=== PATIENT | female | born 1960 | race Caucasian/White ===

== ENCOUNTER 2016-06-24 12:56 | Inpatient (IN) | payer OTHER ==
[~2016-06-24] VITALS: Ht 170.1 cm; Wt 110.2 kg
--- NOTE | ~2016-06-24 | PR ---
[place], [place] PROGRESS NOTE NAME: ANUPAMA SEGURA [facility] #: [id number] UNIT #: [id number] ROOM: 404 DOCTOR: ISABELLE NOONAN MD BIRTHDATE: [birth year] DOS: SUBJECTIVE: The patient is ambulating this morning without any shortness of breath. Her cough is subsided. Her rash has resolved. OBJECTIVE: VITAL SIGNS: Graphic trend shows a pressure of 130/72, pulse of 92, respirations 15, temperature 97.2. LUNGS: Clear this morning. HEART: Regular. ABDOMEN: Obese, soft. EXTREMITIES: Without any edema. ASSESSMENT AND PLAN: 1. Lingular and left lower lobe pneumonia, possible gram negative. Unfortunately, sputum cultures have been ordered, but has not been sent. The patient is stable and improved both clinically as well as radiologically. 2. Acute exacerbation of asthma, which has also improved. 3. Fatty infiltration of liver, advised weight loss. 4. Type 2 diabetes mellitus, non-insulin dependent, controlled. 5. Drug rash, unsure whether it is the doxycycline or the cephalosporins, which caused it, anyway, both the medications have been discontinued and placed on Levaquin and the patient is not having any further rash. The plan is to discharge her to home today on steroids and antibiotics. ISABELLE NOONAN MD CM:PNTRANS [phone] ISABELLE NOONAN MD 06/29/162103 interface
--- NOTE | ~2016-06-24 | PR ---
[place], [place] PROGRESS NOTE NAME: ANUPAMA SEGURA [facility] #: [id number] UNIT #: [id number] ROOM: 404 DOCTOR: NAZANIN MEDELLIN MD BIRTHDATE: [birth year] DOS: 06/27/2016 SUBJECTIVE: The patient says she still has cough and shortness of breath. PHYSICAL EXAMINATION: GENERAL: Morbid obesity. The patient is alert and oriented x 3, in no visible distress. VITAL SIGNS: Blood pressure 124/75, heart rate 85 beats minute, breathing 18 times per minute, temperature 98 degrees Fahrenheit. HEENT AND NECK: Exam within normal limits. CARDIOVASCULAR SYSTEM: Heart rate is regular in rate and rhythm. S1 and S2 normally audible. LUNGS: Somewhat decreased breath sounds especially at the bases. ABDOMEN: Soft, nontender. No obvious organomegaly. Bowel sounds are present. EXTREMITIES: Without significant cyanosis or edema. IMPRESSION: 1. The patient with lingular and left lower lobe pneumonia, likely Gram-negative organisms being treated with ceftriaxone and doxycycline, which had to be discontinued because the patient developed a skin rash and now she is taking IV Levaquin. 2. Drug rash, possibly from ceftriaxone that is a cephalosporins or even doxycycline, which have been stopped, and the patient is on Solu-Medrol and Atarax and has good symptom relief. 3. Benign essential hypertension. The patient is on lisinopril and blood pressures are reasonably controlled. 4. Type 2 diabetes mellitus. The patient's blood sugars are being monitored and are ranging between 148-376, being covered with insulin. Corticosteroid-induced hyperglycemia being covered with regular insulin sliding scale. 5. Exacerbation of bronchial asthma with wheezing and asthmatoid wheezing, being treated with corticosteroids. I will continue present treatment. NAZANIN MEDELLIN MD CM:PNTRANS [id number] NAZANIN MEDELLIN MD 06/28/16911 interface
--- NOTE | ~2016-06-24 | PR ---
[place], [place] PROGRESS NOTE NAME: ANUPAMA SEGURA [facility] #: [id number] UNIT #: [id number] ROOM: 404 DOCTOR: NAZANIN MEDELLIN MD BIRTHDATE: [birth year] DOS: 06/28/2016 SUBJECTIVE: The patient is still coughing significantly, although her breathing has improved. OBJECTIVE: VITAL SIGNS: Blood pressure 124/72, heart rate of 93 beats per minute, breathing 20 times per minute, afebrile. GENERAL APPEARANCE: The patient is alert and oriented x 3, in no visible distress. Obesity. HEENT AND NECK: Exam within normal limits. CARDIOVASCULAR SYSTEM: Heart rate is regular in rate and rhythm. S1 and S2 normally audible. LUNGS: Clear to auscultation. ABDOMEN: Soft, nontender. No obvious organomegaly. Bowel sounds are present. EXTREMITIES: Without significant cyanosis or edema. IMPRESSION: 1. The patient with lingular pneumonia and left lower lobe pneumonia, being treated with Levaquin now. She is clinically improving. The wheezing has resolved. 2. Drug rash improved after the patient stopped taking ceftriaxone and doxycycline. The patient treated with Solu-Medrol and Atarax. 3. Benign essential hypertension with normal blood pressures with treatment. 4. Type 2 diabetes mellitus with better controlled blood sugars now, ranging between 140-150, improved today. 5. Corticosteroid-induced hyperglycemia being treated with regular insulin sliding scale. 6. Exacerbation of bronchial asthma with wheezing and asthmatoid wheezing, being treated with corticosteroids, antibiotics, oxygen, and is improving. NAZANIN MEDELLIN MD CM:PNTRANS [id number] NAZANIN MEDELLIN MD 06/29/16 1107 interface
--- NOTE | ~2016-06-24 | PR ---
[place], [place] PROGRESS NOTE NAME: ANUPAMA SEGURA [facility] #: [id number] UNIT #: [id number] ROOM: 404 DOCTOR: ISABELLE NOONAN MD BIRTHDATE: [birth year] DOS: 06/26/2016 SUBJECTIVE: The patient is feeling better, but has a cough which is productive of scant amounts of sputum. OBJECTIVE: VITAL SIGNS: Blood pressure 125/72, pulse of 102, respirations 20, temperature 97.6. LUNGS: Diminished breath sounds. HEART: Regular. ABDOMEN: Obese, soft. EXTREMITIES: Without edema. ASSESSMENT AND PLAN: 1. A lingular pneumonia as well as a left lower lobe pneumonia, on intravenous antibiotics. This is most likely Gram-negative. Awaiting sputum cultures. Continue antibiotics right now. 2. Asthma with exacerbation, tachypnea and tachycardia with possible early sepsis. The patient is on breathing treatments and IV steroids and slowly improving. 3. Type 2 diabetes mellitus, insulin-dependent, with steroid-induced hyperglycemia, which should start tapering the steroids tomorrow, should be able to go home with p.o. antibiotics. ISABELLE NOONAN MD CM:PNTRANS [phone] ISABELLE NOONAN MD 08/04/16 1231 interface
--- NOTE | ~2016-06-24 | DS ---
[place], [place] DISCHARGE SUMMARY NAME: ANUPAMA SEGURA [facility] #: [id number] UNIT #: [id number] ROOM: 404 DOCTOR: ISABELLE NOONAN MD BIRTHDATE: [birth year] DOS: 06/29/2016 DIAGNOSES: 1. Pneumonia, lingular and left lower lobe. 2. Asthma intermittent with acute exacerbation. 3. Acute respiratory distress syndrome. 4. Tachycardia, possibly from underlying infection. 5. Type 2 diabetes mellitus, non-insulin dependent. 6. Benign hypertension. 7. Mixed hyperlipidemia. 8. Chronic low back pain with spinal stenosis. MEDICATIONS ON DISCHARGE: Same as home meds, gabapentin 300 b.i.d., glimepiride 4 b.i.d., amitriptyline 25 at bedtime, [place] 10 q.4 hours p.r.n., lisinopril 20 daily, Claritin 10 daily, metformin 1000 b.i.d., Aciphex 20 daily, zolpidem 10 at bedtime. New prescriptions given were Levaquin 750 daily for 10 days and prednisone tapering dose, also DuoNeb q.8 hours. HOSPITAL COURSE: This patient is very well known to us, comes in with complaints of cough. She has had multiple ER and urgent care visits with cough and shortness of breath, has been prescribed antibiotics and steroids and continued to have cough and shortness of breath and so decided to come into the office. She was diagnosed with acute respiratory distress and possible early pneumonia and was admitted. After admission, the patient was placed on IV steroids for acute exacerbation of asthma, IV antibiotics. A CT of the chest was done, which showed lingular and left lower lobe pneumonia. Sputum cultures were ordered. The patient's sputum cultures have not been sent yet. Tachypnea and tachycardia seemed to be resolving with the steroids and antibiotics. Cough is also subsiding. The patient then developed a drug rash from one of the antibiotics that she is on, doxycycline and cephalosporins were discontinued and she has been placed on Levaquin. She has not had any new problems, rash has resolved and the patient will be discharged to home to be followed up as an outpatient. Discharge medications as above. We will repeat a CT of the chest as an outpatient at a later date. [place], [place] DISCHARGE SUMMARY NAME: ANUPAMA SEGURA UNIT #: [id number] ROOM: [facility] DOCTOR: ISABELLE NOONAN MD BIRTHDATE: [birth year] ISABELLE NOONAN MD CM:CARLOS [phone] ISABELLE NOONAN MD 06/29/16 1526 interface
--- NOTE | ~2016-06-24 | WRIGHTHP ---
[place], [place] PATIENT HISTORY AND PHYSICAL EXAM NAME: ANUPAMA SEGURA [facility] #: [id number] UNIT #: [id number] ROOM: 404 DOCTOR: ISABELLE NOONAN MD BIRTHDATE: [birth year] DOS: 06/24/2016 HISTORY OF PRESENT ILLNESS: The patient is very well known to us. She comes in with complaints of shortness of breath and cough. She went to [facility] [place] on 06/01/2016, was found to have pneumonia, was prescribed Levaquin. Without any improvement in symptoms, she went back to the same place on [place]. This time, she was told that she needs to go to the hospital because of lack of improvement. She came to the Emergency Room here, she had a chest x-ray, which did not show any pneumonia. She was diagnosed with bronchitis, sent home on cough medications and prednisone. She continues to cough and finally comes to the office on 06/24/2016 with complaints of difficulty breathing and cough which has not resolved for about 3 weeks. She denies having any chest pains, but has palpitations and she has hard time walking because of increasing shortness of breath. PAST MEDICAL HISTORY: Significant for, 1. Type 2 diabetes mellitus, noninsulin dependent. 2. Benign hypertension. 3. Mixed hyperlipidemia. 4. History of asthma with hospitalization in 2013 with asthmatic bronchitis. 5. Chronic low back pain with spinal stenosis. MEDICATIONS: She is currently on are gabapentin 300 b.i.d., glimepiride 4 b.i.d., amitriptyline 25 daily at bedtime, [place] 10 q.4 p.r.n., lisinopril 20 daily, Claritin 10 daily, metformin 1000 b.i.d., Aciphex 20 daily, zolpidem 10 at bedtime p.r.n. SOCIAL HISTORY: Nonsmoker, does not use any alcohol. PHYSICAL EXAMINATION: GENERAL: The patient is awake, alert and oriented. Unstoppable cough. VITAL SIGNS: Her heart rate was 130. When she exercised, saturations did not drop, it remained in the low 90s, but the heart rate went up to the 130. The moment she started walking, she became extremely short of breath. Pressure was 118/54, temperature 98.5. LUNGS: Diminished breath sounds, scattered wheezes. HEART: Regular. ABDOMEN: Obese, soft. EXTREMITIES: Without any edema. ASSESSMENT AND PLAN: 1. The patient has history of asthma, who had a recent diagnosis of pneumonia without any improvement, has been admitted for failed outpatient regimen. She has been started on IV antibiotics. CT scan of the chest will be done to see the extent of infection. 2. Acute exacerbation of asthma, which has been intermittent in the past. She is not on any inhalers right now. IV steroids will be added. Breathing treatments and Pulmicort is also started. 3. Benign hypertension, controlled. 4. Type 2 diabetes mellitus, non-insulin dependent. Blood sugars to be checked [place], [place] PATIENT HISTORY AND PHYSICAL EXAM NAME: ANUPAMA SEGURA [facility] #: [id number] UNIT #: [id number] ROOM: [facility] DOCTOR: ISABELLE NOONAN MD BIRTHDATE: [birth year] and we will readjust medicines depending on her blood sugars. Coverage scale has also been ordered. ISABELLE NOONAN MD CM:HISPHYS:PATIENT HISTORY AND PHYSICAL EXAMINATION [phone] ISABELLE NOONAN MD 08/04/16 1230 interface
[2016-06-24 12:50] VITALS: BP 158/83
[~2016-06-24 12:56] MED LIST: ABILIFY5 MG PO; ACIPHEX20 MG PO; ALPRAZOLAM0.5 M3 PO; AMARYL1 M1 PO; AMBIEN10 M1; AMBIEN10 MG PO; AMITRIPTYLINE H25 MG PO; ANAPROX DS550 MG PO; BUPROPION HCL150 MG PO; CYMBALTA60 MG PO; DAYPRO600 M1; DICLOFENAC SOD75 MG; FERROUSAL325 MG PO; HYDROCO/APAP TAB 7.5; HYDROCODONE BIT1 T11 PO; IRON325 M1 PO; LEVAQUIN750 MG PO; LEVBID0.375 MG PO; LISINOPRIL20 MG; LISINOPRIL20 MG PO; LYRICA75 MG PO; METFORMIN ER500 MG PO; METFORMIN500 MG; NEURONTIN100 MG PO; NORCO 325 MG-101 TAB PO; PREDNISONE10 MG PO; PRILOSEC20 MG PO; PROTONIX40 MG PO; ROBITUSSIN AC 110 ML PO; SKELAXIN400 MG PO; TESSALON PERLE100 M1 PO; VICODIN 5/500 505 MG PO; XANAX0.5 MG PO
[2016-06-24] MEDS ORDERED: NEURONTIN300 MG PO (13:24)
[2016-06-24] MEDS ORDERED: CLARITIN10 MG PO (13:25)
[2016-06-24] MEDS ORDERED: AMARYL4 MG PO (13:25)
[2016-06-24 13:30] VITALS: BP 158/83
[2016-06-24 16:00] VITALS: BP 142/74
[2016-06-24 16:29] LABS: BASO % 0.5 % (0.0-1.0); EOS # 0.6 10*3/uL (0.0-0.4); EOS % 11.3 % (1.0-4.0); HEMATOCRIT 40.5 % (37.0-47.0); HEMOGLOBIN 12.9 g/dl (12.0-16.0); LYMPH # 1.6 10*3/uL (1.3-4.4); LYMPH % 28.9 % (27.0-41.0); MEAN CELL VOLUME 93.3 fl (81.0-99.0); MEAN CORPUSCULAR HGB 29.7 pg (27.0-31.0); MEAN CORPUSCULAR HGB CONC 31.9 g/dl (33.0-37.0); MEAN PLATELET VOLUME 11.1 fl (9.6-12.3); MONO # 0.5 10*3/uL (0.1-1.0); MONO % 9.7 % (3.0-9.0); NEUT # 2.8 10*3/uL (2.3-7.9); NEUT % 49.2 % (47.0-73.0); PLATELET COUNT AUTOMATED 151 10*3/uL (130-400); RED BLOOD COUNT 4.34 10*6/uL (4.10-5.10); RED CELL DISTRI WIDTH 13.6 % (0-14.5); WHITE BLOOD COUNT 5.6 10*3/uL (4.8-10.8)
[2016-06-24 16:57] LABS: BUN 8 mg/dl (7-24); CARBON DIOXIDE 29 mmol/L (21-32); CHLORIDE 105 mmol/L (98-107); EST GLOM FILT AFRICAN AMERICAN > 60 ml/min; GLUCOSE 144 mg/dL (65-99); SODIUM 143 mmol/L (136-145)
[2016-06-24 20:00] VITALS: BP 144/70
[2016-06-25] VITALS: BP 118/54
[2016-06-25 08:00] VITALS: BP 135/65
[2016-06-25 12:00] VITALS: BP 145/88
[2016-06-25 16:00] VITALS: BP 138/84
[2016-06-25 20:00] VITALS: BP 145/80
[2016-06-26] VITALS: BP 125/72
[2016-06-26 08:00] VITALS: BP 142/74
[2016-06-26 12:00] VITALS: BP 150/84
[2016-06-26 16:00] VITALS: BP 119/57
[2016-06-26 20:00] VITALS: BP 120/72
[2016-06-27] VITALS: BP 135/81
[2016-06-27 12:00] VITALS: BP 158/64
[2016-06-27 16:00] VITALS: BP 124/75
[2016-06-27 20:00] VITALS: BP 118/60
[2016-06-28] VITALS: BP 120/73
[2016-06-28 08:00] VITALS: BP 130/86
[2016-06-28 12:00] VITALS: BP 124/72
[2016-06-28 20:00] VITALS: BP 124/67; BP 152/88
[2016-06-29] VITALS: BP 120/72
[2016-06-29 08:00] VITALS: BP 130/72
[2016-06-29] MEDS ORDERED: PREDNISONE5 MG PO (08:40)
[2016-06-29] MEDS ORDERED: LEVAQUIN750 M1 PO (08:40)
[2016-06-29] MEDS ORDERED: DUONEB 3 MG/3 ML3 M1 INH (08:45)
== END 2016-06-29 09:24 | disposition home or self-care (01) | DRG 202 ==
LOC: 4E 12:56
PROVIDERS: Internal Medicine
DX: J45.21 Mild intermittent asthma with (acute) exacerbation (principal); J18.9 Pneumonia, unspecified organism; J80 Acute respiratory distress syndrome; E11.65 Type 2 diabetes mellitus with hyperglycemia; I10 Essential (primary) hypertension; E78.2 Mixed hyperlipidemia; G89.29 Other chronic pain; M54.5 Low back pain; M48.00 Spinal stenosis, site unspecified; L27.0 Generalized skin eruption due to drugs and medicaments taken internally; T36.4X5A Adverse effect of tetracyclines, initial encounter; T36.1X5A Adverse effect of cephalosporins and other beta-lactam antibiotics, initial encounter; T38.0X5A Adverse effect of glucocorticoids and synthetic analogues, initial encounter; K76.0 Fatty (change of) liver, not elsewhere classified; R63.4 Abnormal weight loss; Z68.38 Body mass index [BMI] 38.0-38.9, adult

== ENCOUNTER → 2016-10-07 | Outpatient (CLI) | payer OTHER ==
[~2016-10-07] MED LIST changes: +AMARYL4 MG PO; +CLARITIN10 MG PO; +DUONEB 3 MG/3 ML3 M1 INH; +LEVAQUIN750 M1 PO; +NEURONTIN300 MG PO; +PREDNISONE5 MG PO
== END | disposition home or self-care (01) ==
LOC: MRI 10:39
DX: R51 Headache (principal)

== ENCOUNTER → 2016-12-15 | Outpatient (CLI) | payer OTHER ==
[2016-12-15 10:35] LABS: FOLIC ACID 22.37 ng/mL (>5.38)
== END | disposition home or self-care (01) ==
LOC: LAB 08:58
PROVIDERS: Psychiatry & Neurology Neurology
DX: G37.9 Demyelinating disease of central nervous system, unspecified (principal); Z79.899 Other long term (current) drug therapy

== ENCOUNTER → 2017-04-14 | Outpatient (CLI) | payer OTHER | END | disposition home or self-care (01) | LOC: MRI 12:32 | DX: M51.26 Other intervertebral disc displacement, lumbar region (principal); M48.061 Spinal stenosis, lumbar region without neurogenic claudication ==

== ENCOUNTER → 2017-08-09 | Outpatient (CLI) | payer OTHER | END | disposition home or self-care (01) | LOC: ORTHO 01:38 | DX: M19.031 Primary osteoarthritis, right wrist (principal) ==

== ENCOUNTER → 2017-09-08 | Outpatient (CLI) | payer OTHER | END | disposition home or self-care (01) | LOC: MAMMO 12:37 | DX: Z12.31 Encounter for screening mammogram for malignant neoplasm of breast (principal); N95.9 Unspecified menopausal and perimenopausal disorder ==

== ENCOUNTER 2017-10-14 11:26 | Inpatient (IN) | payer OTHER ==
[~2017-10-14] VITALS: Ht 167.6 cm; Wt 116.7 kg
--- NOTE | ~2017-10-14 | WRIGHTHP ---
[place], [place] PATIENT HISTORY AND PHYSICAL EXAM NAME: ANUPAMA SEGURA [facility] #: [id number] UNIT #: [id number] ROOM: 529 DOCTOR: ISABELLE NOONAN MD BIRTHDATE: [birth year] DOS: 10/14/2017 HISTORY OF PRESENT ILLNESS: The patient is 57-year-old. The patient was at a wedding on Wednesday. She says that the food there was not very good. She did not like the taste of it and on Wednesday morning, she woke up with increasing nausea. She also was sick and had emesis and some diarrhea. She also had some abdominal pain. She denies having any fever or chills. PAST MEDICAL HISTORY: Significant for: 1. Type 2 diabetes mellitus, insulin-dependent. 2. Recent foot surgery. 3. Benign hypertension. 4. Mixed hyperlipidemia. 5. Chronic low back pain with spinal stenosis. MEDICATIONS: She is currently on are aspirin 81, duloxetine 30 b.i.d., gabapentin 300 b.i.d., glimepiride 4 b.i.d., lisinopril 20 daily, loratadine 10 daily, metformin 1000 b.i.d., metoprolol 50 daily, Protonix 20 daily, trazodone 50 at bedtime, insulin glargine 15 units daily. SOCIAL HISTORY: Nonsmoker. PHYSICAL EXAMINATION: GENERAL: She is awake and alert and oriented. VITAL SIGNS: Blood pressure is 130/70, pulse of 70, respirations 18, temperature 98.4. LUNGS: Diminished breath sounds, clear. HEART: Regular. ABDOMEN: Obese, soft, tenderness mostly all over the abdomen. EXTREMITIES: Without any edema. ASSESSMENT AND PLAN: 1. The patient with abdominal pain, nausea and soft stools with diarrhea, most likely has a food poisoning. The patient will be ordered IV fluids and a CT scan of the abdomen is ordered. The patient does not have any shai diarrhea, so stool cultures have not been sent. Routine labs have also been ordered. 2. Type 2 diabetes mellitus and not eating much. We will hold off on her diabetic medications for right now. This morning the CT has come back negative and the patient feels good and does not have any more diarrhea, abdominal pain, so plan is to discharge her to home. [place], [place] PATIENT HISTORY AND PHYSICAL EXAM NAME: ANUPAMA SEGURA UNIT #: [id number] ROOM: 529 DOCTOR: ISABELLE NOONAN MD BIRTHDATE: [birth year] ISABELLE NOONAN MD CM:HISPHYS:PATIENT HISTORY AND PHYSICAL EXAMINATION 8 ISABELLE NOONAN MD 10/15/17 0908 interface
[2017-10-14 12:00] VITALS: BP 156/80
[2017-10-14 12:40] VITALS: BP 157/91
[2017-10-14] MEDS ORDERED: PANTOPRAZOLE SO20 MG PO (13:16)
[2017-10-14] MEDS ORDERED: BASAG SOL SQ (13:17)
[2017-10-14] MEDS ORDERED: ASPIRIN ADULT L81 M1 PO (13:18)
[2017-10-14] MEDS ORDERED: CYMBALTA30 MG PO (13:19)
[2017-10-14] MEDS ORDERED: TRAZODONE50 MG PO (13:19)
[2017-10-14] MEDS ORDERED: TOPROL XL50 M1 PO (13:21)
[2017-10-14] MEDS ORDERED: TYLENOL EXTRA500 M2 PO (13:23)
[2017-10-14 16:00] VITALS: BP 151/89
[2017-10-14 20:26] VITALS: BP 140/88
[2017-10-15 00:16] VITALS: BP 126/64
[2017-10-15 06:08] LABS: BASO % 0.2 % (0.0-1.0); EOS # 0.1 10*3/uL (0.0-0.4); EOS % 2.5 % (1.0-4.0); HEMATOCRIT 38.1 % (37.0-47.0); HEMOGLOBIN 12.1 g/dl (12.0-16.0); LYMPH # 1.5 10*3/uL (1.3-4.4); LYMPH % 32.6 % (27.0-41.0); MEAN CELL VOLUME 92.9 fl (81.0-99.0); MEAN CORPUSCULAR HGB 29.5 pg (27.0-31.0); MEAN CORPUSCULAR HGB CONC 31.8 g/dl (33.0-37.0); MEAN PLATELET VOLUME 11.3 fl (9.6-12.3); MONO # 0.4 10*3/uL (0.1-1.0); MONO % 8.8 % (3.0-9.0); NEUT # 2.5 10*3/uL (2.3-7.9); NEUT % 55.7 % (47.0-73.0); PLATELET COUNT AUTOMATED 134 10*3/uL (130-400); RED CELL DISTRI WIDTH 14.2 % (0-14.5); WHITE BLOOD COUNT 4.5 10*3/uL (4.8-10.8)
[2017-10-15 06:33] LABS: BUN 8 mg/dl (7-24); CHLORIDE 104 mmol/L (98-107); CREATININE 0.64 mg/dL (0.55-1.02); POTASSIUM 3.6 mmol/L (3.5-5.1); SODIUM 142 mmol/L (136-145)
[2017-10-15 08:00] VITALS: BP 135/63
[2017-10-15] MEDS ORDERED: ZOFRAN8 M1 PO (08:18)
== END 2017-10-15 09:24 | disposition home or self-care (01) | DRG 918 ==
LOC: 5E 11:26
PROVIDERS: Internal Medicine
DX: T62.8X1A Toxic effect of other specified noxious substances eaten as food, accidental (unintentional), initial encounter (principal); E11.9 Type 2 diabetes mellitus without complications; E78.2 Mixed hyperlipidemia; I10 Essential (primary) hypertension; G89.29 Other chronic pain; M54.5 Low back pain; Z79.4 Long term (current) use of insulin; Z79.899 Other long term (current) drug therapy; Z79.82 Long term (current) use of aspirin; Y92.89 Other specified places as the place of occurrence of the external cause; Z79.84 Long term (current) use of oral hypoglycemic drugs

== ENCOUNTER → 2018-06-22 | Outpatient (CLI) | payer OTHER ==
[~2018-06-22] MED LIST changes: +ASPIRIN ADULT L81 M1 PO; +BASAG SOL SQ; +CYMBALTA30 MG PO; +NORCO 5-325 TA1 EACH PO; +PANTOPRAZOLE SO20 MG PO; +TEMAZEPAM30 MG PO; +TOPROL XL50 M1 PO; +TRAZODONE50 MG PO; +TYLENOL EXTRA500 M2 PO; +ZOFRAN4 MG PO; +ZOFRAN8 M1 PO
== END | disposition home or self-care (01) ==
LOC: ORTHO 00:52
DX: M13.841 Other specified arthritis, right hand (principal); M13.831 Other specified arthritis, right wrist

== ENCOUNTER → 2018-07-20 | Outpatient (CLI) | payer OTHER | END | disposition home or self-care (01) | LOC: CT 10:42 | DX: M18.11 Unilateral primary osteoarthritis of first carpometacarpal joint, right hand (principal); M67.431 Ganglion, right wrist ==

== ENCOUNTER → 2018-07-28 | Outpatient (CLI) | payer OTHER ==
--- NOTE | ~2018-07-28 | EKG ---
[place], [place] ELECTROCARDIOGRAM REPORT NAME: ANUPAMA SEGURA UNIT #: [id number] ROOM: DOCTOR: EPIPHMARILEE DRAFT REPORT BIRTHDATE: [birth year] [facility] Test Date: 2018-07-28 Test Time: 12:10:10 Pat Name: ANUPAMA SEGURA Department: Room: Gender: F Residential Direct Support Professional: 0012 : 1960 Requested By: GAYATRI BEGUM Order Number: [id number] Reading MD: Barry Jo MD Measurements Intervals [place] Rate: 85 P: 43 NV: 146 QRS: -3 QRSD: 83 T: 5 QT: 367 QTc: 437 Interpretive Statements Sinus rhythm Inferior infarct, old No previous ECG available for comparison Electronically Signed On 07-28-2018 18:28:42 PST by Barry Jo MD CM:EKGRPT:ELECTROCARDIOGRAM REPORT 1210 [id number] GAYATRI MUNOZ DRAFT REPORT GAYATRI BEGUM DO
[2018-07-28 12:01] LABS: BILIRUBIN NEGATIVE (NEGATIVE); BLOOD NEGATIVE (NEGATIVE); CLARITY CLEAR (CLEAR); COLOR YELLOW (YELLOW); GLUCOSE 2+ (NEGATIVE); KETONE NEGATIVE (NEGATIVE); LEUKO ESTERASE NEGATIVE (NEGATIVE); NITRITE NEGATIVE (NEGATIVE); PH 5.5 (5.0-9.0); SPECIFIC GRAVITY 1.015 (1.005-1.030); UROBILINOGEN 0.2 E.U./dl (0.2-1.0)
[2018-07-28 12:10] LABS: BACTERIA 1+
[2018-07-28 12:11] LABS: MUCOUS 1+
[2018-07-28 12:15] LABS: BASO % 0.5 % (0.0-1.0); EOS # 0.2 10*3/uL (0.0-0.4); EOS % 2.6 % (1.0-4.0); HEMATOCRIT 42.3 % (37.0-47.0); LYMPH # 1.9 10*3/uL (1.3-4.4); LYMPH % 29.6 % (27.0-41.0); MEAN CORPUSCULAR HGB 28.6 pg (27.0-31.0); MEAN CORPUSCULAR HGB CONC 30.7 g/dl (33.0-37.0); MEAN PLATELET VOLUME 11.5 fl (9.6-12.3); MONO # 0.5 10*3/uL (0.1-1.0); MONO % 7.9 % (3.0-9.0); NEUT # 3.7 10*3/uL (2.3-7.9); NEUT % 59.2 % (47.0-73.0); PLATELET COUNT AUTOMATED 186 10*3/uL (130-400); RED BLOOD COUNT 4.55 10*6/uL (4.10-5.10); RED CELL DISTRI WIDTH 14.6 % (0-14.5); WHITE BLOOD COUNT 6.2 10*3/uL (4.8-10.8)
[2018-07-28 12:31] LABS: BUN 13 mg/dl (7-24); CHLORIDE 104 mmol/L (98-107); CREATININE 0.76 mg/dL (0.55-1.02); SODIUM 139 mmol/L (136-145)
== END | disposition home or self-care (01) ==
LOC: LAB 10:01
PROVIDERS: Orthopaedic Surgery
DX: Z01.818 Encounter for other preprocedural examination (principal); M67.431 Ganglion, right wrist

== ENCOUNTER → 2018-12-12 | Outpatient (CLI) | payer OTHER ==
[2018-12-12 09:52] LABS: TOTAL PROTEIN 7.6 gm/dL (6.4-8.2)
[2018-12-12 09:55] LABS: ALBUMIN 3.4 gm/dl (3.1-4.5); BILIRUBIN, DIRECT 0.2 mg/dL (0.0-0.2)
== END | disposition home or self-care (01) ==
LOC: LAB 08:53
PROVIDERS: Nurse Practitioner Family
DX: K75.81 Nonalcoholic steatohepatitis (NASH) (principal)

== ENCOUNTER → 2019-03-10 | Outpatient (CLI) | payer OTHER ==
[2019-03-10 10:45] LABS: BASO % 0.5 % (0.0-1.0); EOS # 0.1 10*3/uL (0.0-0.4); EOS % 3.3 % (1.0-4.0); HEMATOCRIT 40.5 % (37.0-47.0); HEMOGLOBIN 12.2 g/dl (12.0-16.0); LYMPH # 1.4 10*3/uL (1.3-4.4); LYMPH % 33.8 % (27.0-41.0); MEAN CELL VOLUME 91.4 fl (81.0-99.0); MEAN CORPUSCULAR HGB 27.5 pg (27.0-31.0); MEAN CORPUSCULAR HGB CONC 30.1 g/dl (33.0-37.0); MEAN PLATELET VOLUME 11.9 fl (9.6-12.3); MONO # 0.4 10*3/uL (0.1-1.0); MONO % 8.9 % (3.0-9.0); NEUT # 2.3 10*3/uL (2.3-7.9); NEUT % 53.3 % (47.0-73.0); PLATELET COUNT AUTOMATED 193 10*3/uL (130-400); RED BLOOD COUNT 4.43 10*6/uL (4.10-5.10); RED CELL DISTRI WIDTH 15.2 % (0-14.5); WHITE BLOOD COUNT 4.3 10*3/uL (4.8-10.8)
[2019-03-10 12:10] LABS: ALBUMIN 3.5 gm/dl (3.1-4.5); BUN 12 mg/dl (7-24); CHLORIDE 103 mmol/L (98-107); CHOLESTEROL 172 mg/dL (<200); CREATININE 0.75 mg/dL (0.55-1.02); POTASSIUM 4.2 mmol/L (3.5-5.1); SGOT/AST 38 IU/L (3-35); SGPT/ALT 27 U/L (12-78); SODIUM 138 mmol/L (136-145); TOTAL PROTEIN 7.8 gm/dL (6.4-8.2); TRIGLYCERIDES 98 mg/dl (<150); VLDL CHOLESTEROL 20 mg/dL (6-40)
[2019-03-10 12:13] LABS: VITAMIN D, 25-HYDROXY 36.1 ng/mL (30-100)
[2019-03-10 12:17] LABS: ALKALINE PHOSPHATASE 138 U/L (45-117); FREE T4 1.09 ng/dl (0.76-1.46); HDL CHOLESTEROL 48 mg/dl (40-60); LDL CHOLESTEROL 104 mg/dL (9-159)
== END | disposition home or self-care (01) ==
LOC: LAB 09:15
PROVIDERS: Internal Medicine
DX: M16.0 Bilateral primary osteoarthritis of hip (principal); E11.9 Type 2 diabetes mellitus without complications; E55.9 Vitamin D deficiency, unspecified; I10 Essential (primary) hypertension; E78.2 Mixed hyperlipidemia; M54.5 Low back pain; M48.54XA Collapsed vertebra, not elsewhere classified, thoracic region, initial encounter for fracture

== ENCOUNTER → 2019-04-17 | Outpatient (CLI) | payer OTHER | END | disposition home or self-care (01) | LOC: LAB 08:50 → US 08:50 | DX: K80.80 Other cholelithiasis without obstruction (principal); K76.0 Fatty (change of) liver, not elsewhere classified ==

== ENCOUNTER → 2019-06-29 | Outpatient (CLI) | payer OTHER | END | disposition home or self-care (01) | LOC: LAB 09:05 | DX: K74.60 Unspecified cirrhosis of liver (principal) ==

== ENCOUNTER → 2021-06-16 | Outpatient (CLI) | payer OTHER | LOC: RAD 11:29 | PROVIDERS: ATTEND Chiropractor Orthopedic | DX: M50.30 Other cervical disc degeneration, unspecified cervical region (principal); M99.01 Segmental and somatic dysfunction of cervical region; M47.812 Spondylosis without myelopathy or radiculopathy, cervical region; M25.78 Osteophyte, vertebrae ==